=== PATIENT | female | born 1990 | race Caucasian/White ===

== ENCOUNTER 2018-03-13 02:04 | Inpatient (IN) | payer OTHER ==
[2018-03-13] MEDS ORDERED: CARBOPROST 250 MCG/ML SOL IM PRN (02:39)
[2018-03-13] MEDS ORDERED: METHYLERGONOVINE MALEATE 0.2 MG/ML SOL IM PRN (02:39)
[2018-03-13] MEDS ORDERED: SODIUM CHLORIDE 0.9% FLUSH 10 ML SOL IV PRN (02:39)
[2018-03-13] MEDS ORDERED: MEPIVACAINE HCL 1% MPF 30 ML/VIAL SOL INFIL PRN (02:39)
[2018-03-13] MEDS ORDERED: FENTANYL 100MCG/2ML SOL IV PRN (02:39)
[2018-03-13] MEDS ORDERED: OXYTOCIN 10000 MU/ML SOL IM PRN (02:39)
[2018-03-13] MEDS ORDERED: LACTATED RINGERS 1,000 ML IV PRN (02:39)
[2018-03-13 02:56] LABS: BASOPHILS % (AUTO) 1 % (0-3); EOSINOPHILS % (AUTO) 1 % (0-9); HEMATOCRIT 35 % (35-47); HEMOGLOBIN 12.5 gm/dl (12.0-15.5); LYMPHOCYTES % (AUTO) 14.7 % (10-50); MEAN CORPUSCULAR HEMOGLOBIN 31.3 pg (27.0-32.0); MEAN CORPUSCULAR HGB CONC 35.4 gm/dl (32.0-36.0); MEAN CORPUSCULAR VOLUME 88 fL (81-99); MONOCYTES % (AUTO) 6.9 % (0-12)
[2018-03-13] MEDS ORDERED: AMPICILLIN 1 GM PDS 2 GM in SODIUM CHLORIDE 0.9% 100 ML 100 ML IV SCH (03:00)
[2018-03-13] MEDS ORDERED: AMPICILLIN 1 GM PDS ONE ×4 (03:19→14:34)
[2018-03-13] MEDS: SODIUM CHLORIDE 0.9% FLUSH 10 ML SOL IV SCH ×3 (03:28→22:07)
[2018-03-13] MEDS ORDERED: EPHEDRINE SULFATE 50 MG/ML SOL IV PRN (04:48)
[2018-03-13] MEDS ORDERED: NALOXONE HYDROCHLORIDE 0.4 MG/ML SOL IV PRN (04:48)
[2018-03-13] MEDS ORDERED: NALBUPHINE HCL 20 MG/ML SOL IV PRN (04:48)
[2018-03-13] MEDS ORDERED: DIPHENHYDRAMINE 50 MG/ML SOL IV PRN (04:48)
[2018-03-13] MEDS: LACTATED RINGERS 1,000 ML IV SCH ×5 (05:00→21:51)
[2018-03-13] MEDS ORDERED: LIDOCAINE HCL 2% MPF 10 ML SOL ONE (05:27)
[2018-03-13] MEDS ORDERED: FENTANYL 250 MCG/ 5ML SOL ONE (05:32)
[2018-03-13] MEDS ORDERED: ROPIVACAINE HYDROCHLORIDE 5 MG/ML SOL ONE (05:33)
[2018-03-13] MEDS: AMPICILLIN 1 GM PDS 1 GM in SODIUM CHLORIDE 0.9% 100 ML 100 ML IV SCH ×3 (07:27→14:48)
[2018-03-13] MEDS ORDERED: BENZOCAINE/MENTHOL 1 SPR TOP PRN (15:09)
[2018-03-13] MEDS ORDERED: WITCH HAZEL 1 EA PAD TOP PRN (15:09)
[2018-03-13] MEDS ORDERED: METHYLERGONOVINE MALEATE 0.2 MG TAB PO PRN (15:09)
[2018-03-13] MEDS ORDERED: BISACODYL 10 MG SUP PR PRN (15:09)
[2018-03-13] MEDS ORDERED: FLEET ENEMA PR PRN (15:09)
[2018-03-13] MEDS ORDERED: APAP/HYDROCODONE 325/5 TAB PO PRN (15:09)
[2018-03-13] MEDS ORDERED: TEMAZEPAM 15MG 15 MG CAP PO PRN (15:09)
[2018-03-13] MEDS: IBUPROFEN 600 MG TAB PO PRN (18:04)
[2018-03-13] MEDS: DOCUSATE SODIUM 100 MG SGL PO SCH (21:17)
[2018-03-14] MEDS: SODIUM CHLORIDE 0.9% FLUSH 10 ML SOL IV SCH ×2 (05:17→11:26)
[2018-03-14] MEDS: LACTATED RINGERS 1,000 ML IV SCH ×2 (05:18→17:23)
[2018-03-14] MEDS: DOCUSATE SODIUM 100 MG SGL PO SCH ×2 (09:47→21:19)
[2018-03-14] MEDS: IBUPROFEN 600 MG TAB PO PRN ×2 (11:26→23:19)
[2018-03-15 03:24] VITALS: PULSE 54; RESP 18; TEMP 97.1; O2SAT 99
[2018-03-15 03:54] VITALS: BP 146/91
[2018-03-15] MEDS: DOCUSATE SODIUM 100 MG SGL PO SCH (11:16)
== END 2018-03-15 10:50 | disposition home or self-care (01) | DRG 775 ==
LOC: OBSVTOIN 02:04 → OB 02:04
PROVIDERS: ADMIT Family Medicine; ATTEND Family Medicine
PROC: 3E04329 Introduction of Other Anti-infective into Central Vein, Percutaneous Approach (ICD-10-PCS; principal; 2018-03-13)
PROC: 10E0XZZ Delivery of Products of Conception, External Approach (ICD-10-PCS; 2018-03-13)
DX: O80 Encounter for full-term uncomplicated delivery (principal); Z37.0 Single live birth; O99.824 Streptococcus B carrier state complicating childbirth; Z3A.40 40 weeks gestation of pregnancy
CPT/HCPCS: 36415; 59025; 84112; 85018; 85025; 94762; 99070; J0290; J0670; J2590; J2795; J3010; A9270-GY